=== PATIENT | female | born 1945 | race Caucasian/White ===

== ENCOUNTER 2017-12-24 15:08 | Emergency (ER) | payer MEDICARE, OTHER, SELFPAY ==
[2017-12-24 15:13] VITALS: BP 114/69; PULSE 65; RESP 20; TEMP 36.2; O2SAT 99; BMI 22.6
[2017-12-24 16:46] VITALS: BP 150/71; PULSE 65; RESP 14; O2SAT 100
[2017-12-24] MEDS: LIDOCAINE 1% W/EPI INJ 4 ML INJ (17:23)
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
[2017-12-24] MEDS: TET,DIPH,PERTUSS(ACELL),VAC/PF 0.5 ML SYRINGE IM (18:55)
[2017-12-24 18:58] VITALS: BP 153/82; PULSE 67; RESP 14; O2SAT 100
[2017-12-24 19:41] VITALS: BP 116/74; PULSE 67; RESP 16; O2SAT 100
== END 2017-12-24 19:42 | disposition home or self-care (01) ==
PROVIDERS: Emergency Provider Emergency Medicine
DX: S81.019A Laceration without foreign body, unspecified knee, initial encounter (principal); V18.0XXA Pedal cycle driver injured in noncollision transport accident in nontraffic accident, initial encounter
CPT/HCPCS: 12002; 90471; 93005; 99283; 90715

== ENCOUNTER → 2018-07-04 12:22 | Outpatient (CLI) | payer MEDICARE, OTHER, SELFPAY ==
--- NOTE | 2018-07-04 | DI.MG.S_ITS ---
BILATERAL DIGITAL SCREENING MAMMOGRAM 3D/2D WITH CAD: 07/04/2018 CLINICAL: Routine screening. Family history of breast cancer. Comparison is made to exams dated: 07/25/2016 mammogram, 07/22/2015 mammogram, and 07/04/2014 mammogram - [facility]. The tissue of both breasts is heterogeneously dense. This may lower the sensitivity of mammography. Current study was also evaluated with a Computer Aided Detection (CAD) system. There are benign vascular calcifications in both breasts. No significant masses, calcifications, or other findings are seen in either breast. There has been no significant interval change. IMPRESSION: There is no mammographic evidence of malignancy. A 1 year screening mammogram is recommended. NOTE: For mammograms, a report in lay terms will be sent to the patient. Approximately 15% of breast malignancies will not be visualized mammographically. In the management of a palpable breast mass, a negative mammogram must not discourage biopsy of a clinically suspicious lesion. Electronically Signed By: Xiomy mak/camila:07/04/2018 15:09:54 letter sent: Normal Exam ACR BI-RADS Category 2: Benign Finding(s) 3342F
== END ==
PROVIDERS: Visit Provider Student in an Organized Health Care Education/Training Program
DX: Z12.31 Encounter for screening mammogram for malignant neoplasm of breast (principal); Z80.3 Family history of malignant neoplasm of breast; M81.0 Age-related osteoporosis without current pathological fracture; Z78.0 Asymptomatic menopausal state; Z87.891 Personal history of nicotine dependence
CPT/HCPCS: 77063; 77067; 77080; 77081

== ENCOUNTER → 2020-05-11 14:53 | Outpatient (CLI) | payer MEDICARE, OTHER, SELFPAY ==
--- NOTE | 2020-05-11 14:56 | DI.MG.S_ITS ---
BILATERAL DIGITAL SCREENING MAMMOGRAM 3D/2D WITH CAD: 05/11/2020 CLINICAL: Routine screening. Family history of breast cancer. Comparison is made to exams dated: 07/04/2018 mammogram, 07/25/2016 mammogram, and 07/22/2015 mammogram - [facility]. The tissue of both breasts is heterogeneously dense. This may lower the sensitivity of mammography. Current study was also evaluated with a Computer Aided Detection (CAD) system. There are benign vascular calcifications in both breasts. No significant masses, calcifications, or other findings are seen in either breast. There has been no significant interval change. IMPRESSION: BENIGN There is no mammographic evidence of malignancy. A 1 year screening mammogram is recommended. This exam was interpreted at Station ID: [id number]. NOTE: For mammograms, a report in lay terms will be sent to the patient. Approximately 15% of breast malignancies will not be visualized mammographically. In the management of a palpable breast mass, a negative mammogram must not discourage biopsy of a clinically suspicious lesion. Electronically Signed By: Allen salazar/camila:05/11/2020 19:19:08 letter sent: Normal Exam ACR BI-RADS Category 2: Benign Finding(s) 3342F
== END ==
PROVIDERS: PCP Nurse Practitioner; Referring Provider Nurse Practitioner; Visit Provider Nurse Practitioner
DX: Z12.31 Encounter for screening mammogram for malignant neoplasm of breast (principal); Z80.3 Family history of malignant neoplasm of breast; M81.0 Age-related osteoporosis without current pathological fracture; Z78.0 Asymptomatic menopausal state; Z87.891 Personal history of nicotine dependence
CPT/HCPCS: 77063; 77067; 77080; 77081

== ENCOUNTER → 2020-05-27 07:20 | Outpatient (CLI) | payer MEDICARE, OTHER, SELFPAY ==
[2020-05-27 09:24] LABS: Alanine Aminotransferase 24 IU/L (<35); Albumin Globulin Ratio 1.5 (1.0-2.8); Alkaline Phosphatase 70 U/L (38-126); Aspartate Aminotransferase 31 IU/L (14-36); Bilirubin Total 0.5 mg/dL (0.2-1.3); Blood Urea Nitrogen 20 mg/dL (7-17); Calcium 9.6 mg/dL (8.4-10.2); Carbon Dioxide 31 mmol/L (22-32); Chloride 103 mmol/L (98-107); Estimated Glomerular Filt Rate > 60.0 mL/min (>60); Globulin 2.6 g/dL (1.7-4.1); Glucose 85 mg/dL (80-110); HEMOLYSIS < 15 (0-50); Sodium 139 mmol/L (137-145); Total Protein 6.6 g/dL (6.3-8.2)
[2020-05-27 09:26] LABS: Potassium 4.4 mmol/L (3.4-5.1)
[2020-05-27 09:37] LABS: Free T3, Triiodothyronine Free 3.39 pg/mL (2.77-5.27); Free T4, Direct Thyroxine 1.12 ng/dL (0.78-2.19)
[2020-05-27 09:51] LABS: Thyroid Stimulating Hormone 2.34 uIU/mL (0.47-4.68)
[2020-05-27 11:40] LABS: Creatinine Urine Random 121.9 mg/dL
[2020-05-27 11:50] LABS: Microalbumin Urine Random 1.1 mg/dL (0-1.6)
== END ==
PROVIDERS: PCP Nurse Practitioner; Referring Provider Nurse Practitioner; Visit Provider Nurse Practitioner
DX: I10 Essential (primary) hypertension (principal)
CPT/HCPCS: 36415; 80053; 82043; 82570; 84439; 84443; 84481

== ENCOUNTER → 2020-06-03 09:47 | Outpatient (CLI) | payer MEDICARE, OTHER, SELFPAY | PROVIDERS: PCP Nurse Practitioner; Referring Provider Nurse Practitioner; Visit Provider Nurse Practitioner | DX: I10 Essential (primary) hypertension (principal) | CPT/HCPCS: 93005 ==

== ENCOUNTER → 2020-06-10 08:02 | Outpatient (CLI) | payer MEDICARE, OTHER, SELFPAY ==
--- NOTE | 2020-06-10 08:03 | DI.ECHO.S_ITS ---
[facility] +---------+ : : [address] [place] [address] : : : : [id number] : : : : Phone: [phone]+ Echocardiogram Report + + :Name: MARLO RIVERA Study Date: 06/10/2020 Height: 63 in : :[facility] Weight: 135 lb : : Gender: Female BSA: 1.6 m2 : :: 1945 Age: 75 yrs BP: 149/84 mmHg: :Reason For Study: HYPERTENSION : :Ordering Physician: FREDDY, : :HEIDE Performed By: Pamela Vasques : :Referring: HEIDE HAYES : + + Interpretation Summary The left ventricle is normal in size and wall thickness. The ejection fraction is estimated to be 60-65%. The right ventricle is normal in size and function. No significant valvular pathology seen. Procedure: A two-dimensional transthoracic echocardiogram with color flow and Doppler was performed. The study quality was technically adequate. There is no prior echocardiogram noted for this patient. The heart rate ranged between 60-76 bpm during the study. The patient had occasional PACs during the exam. The patient was in normal sinus rhythm during the exam. The patient had a bundle branch block rhythm during the exam. Left Ventricle: The left ventricle is normal in size and wall thickness. There is no thrombus. The ejection fraction is estimated to be 60-65%. There are no focal wall motion abnormalities. MV E/A: 1.2 Med Peak E' Paulie: 9.0 cm/sec E/E' med: 12.0. Right Ventricle: The right ventricle is normal in size and function. Atria: Both atria are normal in size. There is no Doppler evidence for an interatrial shunt. The thickening of interatrial septum suggests lipomatous hypertrophy. Mitral Valve: The mitral valve leaflets are slightly calcified. There is mild mitral regurgitation. Aortic Valve: The aortic valve is trileaflet. The aortic valve opens well. The aortic valve is mildly calcified. There is discrete nodular thickening of the non- coronary and left coronary cusp. There is no aortic valve stenosis. No aortic regurgitation is present. Tricuspid Valve: The tricuspid valve is normal. Pulmonary artery pressures cannot be estimated because of the lack of a measurable TR jet velocity but the IVC suggests a CVP of around 3 mmHg. There is trace tricuspid regurgitation. Pulmonic Valve: The pulmonic valve leaflets are thin and pliable; valve motion is normal. There is trace pulmonic regurgitation. Great Vessels: The aortic root is normal size. The dimensions of the ascending aorta are normal. The IVC is of normal diameter and collapses greater than 50% with a sniff. This suggests a low right atrial pressure of 3 mm Hg. Pericardium/ Pleura There is no pericardial effusion. There is no pleural effusion. MMode/2D Measurements & Calculations LVIDd: 4.0 cm LVOT diam: 1.9 cm LVIDs: 2.6 cm Ao root diam: 2.8 cm FS: 33.7 % asc Aorta Diam: 3.0 cm EPSS: 0.42 cm Ao Arch Diam (Prox Trans): 2.3 cm IVSd: 0.75 cm LVPWd: 0.93 cm LV rosales. diameter/BSA (cm/m^2): 2.4 LV sys. diameter/BSA (cm/m^2): 1.6 LA A2 area: 15.4 cm2 RA long axis: 4.7 cm LA A4 area: 15.8 cm2 RA area: 14.8 cm2 LA length (vol): 4.8 cm RA vol: 39.5 ml LA vol: 42.9 ml RA : 24.1 ml/m2 LA vol index: 26.2 ml/m2 IVC diam: 1.3 cm RVD1 (basal): 3.6 cm TAPSE: 2.9 cm Doppler Measurements & Calculations Ao V2 max: 125.6 cm/sec LVOT Max Paulie: 103.8 cm/sec Ao V2 mean: 80.6 cm/sec LV V1 max P.3 mmHg Ao max P.3 mmHg LV V1 VTI: 23.3 cm Ao mean P.1 mmHg LORENA(I,D): 2.6 cm2 Ao V2 VTI: 25.5 cm LORENA(V,D): 2.4 cm2 sev ratio: 0.91 LORENA indexed to BSA (cm^2/m^2): 1.6 MV E max paulie: 107.2 cm/sec PA V2 max: 68.6 cm/sec MV A max paulie: 88.9 cm/sec PA V2 mean: 41.9 cm/sec MV E/A: 1.2 PA mean P.86 mmHg Med Peak E' Paulie: 9.0 cm/sec PA pr(Accel): 22.5 mmHg E/E' med: 12.0 Lat Peak E' Paulie: 9.9 cm/sec E/E' lat: 10.8 E/e' average: 11.4 MV dec time: 0.14 sec SV(LVOT): 67.3 ml Reading Physician:05:35 PM
== END ==
PROVIDERS: PCP Nurse Practitioner; Referring Provider Nurse Practitioner; Visit Provider Nurse Practitioner
DX: I34.0 Nonrheumatic mitral (valve) insufficiency (principal); I10 Essential (primary) hypertension
CPT/HCPCS: 93306

== ENCOUNTER 2021-04-14 09:07 | Outpatient (RCR) | payer MEDICARE, OTHER, SELFPAY ==
--- NOTE | 2021-04-14 15:02 | PT.OIE ---
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) Hypertension Lumbar spine pain (~2007) Mitral valve prolapse (~2001) Osteoarthritis (~2005) Osteoporosis (~2018) Ovarian cyst (~1972) Shoulder pain (~2009) Skin cancer (~2004) Vocal cord paralysis (~2017) White coat syndrome with diagnosis of hypertension [place] teeth removed (~1956) Past Surgical History (Last Reviewed 04/09/21 @ 08:52 by EMMANUEL Delgado) Anesthesia History of left hip replacement (~07/2012) Ovarian fibroma (~1972) [place] teeth removed (~1956) Visit Care Team Role Provider Type EMMANUEL Delgado Attending Provider Advanced Water/Wastewater Project Engineer Family Provider Primary Care Provider Referring Provider Specialty: [facility] Address: [address] [place] [address], [facility] Email: [email or web address] Physical Therapy Initial Evaluation PT-OP-A Visit Information Start: 04/14/21 14:46 Freq: Status: Active Protocol: Document 04/14/21 09:45 DCW (Rec: 04/14/21 14:56 [facility] [id number]) Out-Patient Physical Therapy Visit Information Visit Information Visit Type Initial Evaluation Visit Start Time 09:45 Visit Stop Time 10:30 Total Visit Minutes 45 Visit Number 1 Number of STEEL GRINDER Visits 0 Evaluation Information Evaluation Date 04/14/21 PT-OP-B Current Condition Start: 04/14/21 14:46 Freq: Status: Active Protocol: Document 04/14/21 09:45 DCW (Rec: 04/14/21 14:56 [facility] [id number]) Current Condition History of Current Condition Onset Date Worsening over the last year Current Complaints Weakness, declining balance History of Current Condition Pt is a 76 year old female who is reporting worsening balance and weakness over the last year. Admits she has been pretty sedentary during Covid lock-down. 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 Notes that she may just be in denial of the aging process, but feels irritated that she is just not at her usual physical level. PT-OP-C Subjective Start: 04/14/21 14:46 Freq: Status: Active Protocol: Document 04/14/21 09:45 DCW (Rec: 04/14/21 14:56 DCW [id number]) OP-PT Subjective Patient Comments Patient Comments I'm not even sure if this is the right thing for me. I saw the other people in the waiting room, and I'm not really all that bad, I considered just leaving. OP-PT Pain Assessment Pain Assessment Grid Paper Pain Assessment Grid Completed Yes Location Left Knee Intensity 2 Scale Used Numeric (0 - 10) PT-OP-D Balance Start: 04/14/21 14:46 Freq: Status: Active Protocol: Document 04/14/21 09:45 DCW (Rec: 04/14/21 14:56 DCW [id number]) OP-PT Balance Assessment Sitting Balance Static Sitting Balance Ability Normal Dynamic Sitting Balance Ability Normal Standing Balance Static Standing Balance Ability Normal Dynamic Standing Balance Ability Normal Device Used None Balance Tests mCTSIB mCTSIB Position 1 30+ seconds mCTSIB Position 2 30+ seconds mCTSIB Position 3 30+ seconds mCTSIB Position 4 30+ seconds Single Limb Standing Single Limb- Right 13 seconds Single Limb- Left 4 seconds Tandem Tandem Standing R front: 25 seconds. L front: 30+ seconds [place] Fall Scale Copyright Permission PT-OP-E Functional Tests Start: 04/14/21 14:46 Freq: Status: Active Protocol: Document 04/14/21 09:45 DCW (Rec: 04/14/21 14:56 DCW [id number]) Functional Tests Four Step Square Test Score 25/30 Comments Avg score ages 70-79 = 24.9 PT-OP-M Strength Start: 04/14/21 14:46 Freq: Status: Active Protocol: Document 04/14/21 09:45 DCW (Rec: 04/14/21 14:58 DCW [id number]) Shoulder Strength Shoulder Manual Muscle Testing Bilateral Flexion 4+ Good+ Abduction (C5) 4 Good External Rotation 4 Good Internal Rotation 4+ Good+ Hip Strength Hip Manual Muscle Testing Right Flexion (L2) 4+ Good+ Extension (S1) 5 Normal Abduction 5 Normal Adduction 5 Normal External Rotation 4+ Good+ Internal Rotation 4+ Good+ Left Flexion (L2) 4+ Good+ Extension (S1) 5 Normal Abduction 5 Normal Adduction 5 Normal External Rotation 4+ Good+ Internal Rotation 4+ Good+ Knee Strength Knee Manual Muscle Testing Right Flexion (S2) 4+ Good+ Extension (L3) 4+ Good+ Left Flexion (S2) 4- Good- Extension (L3) 4+ Good+ PT-OP-T Assessment and Plan Start: 04/14/21 14:46 Freq: Status: Active Protocol: Document 04/14/21 09:45 DCW (Rec: 04/14/21 15:02 DCW [id number]) Physical Therapy Assessment Evaluation Complexity Number of Personal Factors/Comorbidities 0 Number of Body Systems Impaired 1-2 Clinical Presentation at Evaluation Stable Assessment Summary Assessment Pt overall doing very well, her main complaint at the moment is a recent tweak of the knee, which limited her left knee flexion MMT and also affected her L SLS, however her overall balance and strength are largely WNL for her age. May expect slightly improved scores due to her history of endurance athletics , however no glaring weaknesses or deficiencies. Following assessment, patient and therapist discussed her goals, and in the end, she felt what she really needed was less skilled therapy and more of a personal lines insurance advisor, to help plan and implement an exercise routine and motivate her to follow-through. Therapist is in agreement with this plan. Will discharge following today's evaluation. Physical Therapy Plan Frequency and Duration Frequency of Treatment Eval only Duration of Treatment One day Plan of Care Start Date 04/14/21 Plan of Care End Date 04/15/21 Discharge Physical Therapy Discharge Comments Eval only Next Visit Focus/Plan Next Note Type Discharge Summary
--- NOTE | 2021-04-14 15:03 | PT.OPPOC ---
Physical, Occupational & Speech Therapy At [facility] Current Diagnoses Muscle weakness (generalized) (04/14/21) Visit Care Team Role Provider Type EMMANUEL Delgado Attending Provider Advanced Ski Patrol Officer Family Provider Primary Care Provider Referring Provider Specialty: Family Practice Address: [address] [place] [address], [id number] Email: [email or web address] Plan Of Care PT-OP-T Assessment and Plan Start: 04/14/21 14:46 Freq: Status: Active Protocol: Document 04/14/21 09:45 DCW (Rec: 04/14/21 15:02 DCW [id number]) Physical Therapy Assessment Evaluation Complexity Number of Personal Factors/Comorbidities 0 Number of Body Systems Impaired 1-2 Clinical Presentation at Evaluation Stable Assessment Summary Assessment Pt overall doing very well, her main complaint at the moment is a recent tweak of the knee, which limited her left knee flexion MMT and also affected her L SLS, however her overall balance and strength are largely WNL for her age. May expect slightly improved scores due to her history of endurance athletics , however no glaring weaknesses or deficiencies. Following assessment, patient and therapist discussed her goals, and in the end, she felt what she really needed was less skilled therapy and more of a personal carer, to help plan and implement an exercise routine and motivate her to follow-through. Therapist is in agreement with this plan. Will discharge following today's evaluation. Physical Therapy Plan Frequency and Duration Frequency of Treatment Eval only Duration of Treatment One day Plan of Care Start Date 04/14/21 Plan of Care End Date 04/15/21 Discharge Physical Therapy Discharge Comments Eval only Next Visit Focus/Plan Next Note Type Discharge Summary Plan of Care Dates Plan of Care Start Date 04/14/21 Plan of Care End Date 04/15/21 Electronically Signed by: Fernando Maldonado, PT 04/14/21 [id number] Please Sign and Return: I have reviewed this Plan of Care and certify that the skilled therapy services above are required to meet the patient?s needs. Physician Signature Date Printed Name and Credentials Clinical Instructor Signature Printed Name and Credentials
== END 2021-04-14 15:24 | disposition home or self-care (01) ==
LOC: PHYS 09:07
PROVIDERS: Family Provider Nurse Practitioner; PCP Nurse Practitioner; Referring Provider Nurse Practitioner; Visit Provider Nurse Practitioner
DX: M62.81 Muscle weakness (generalized) (principal)
CPT/HCPCS: 97161

== ENCOUNTER → 2021-04-15 12:51 | Outpatient (CLI) | payer MEDICARE, OTHER, SELFPAY ==
--- NOTE | 2021-04-15 12:54 | DI.RAD.S_ITS ---
PROCEDURE: FL BARIUM SWALLOW W AIR COMPARISON: None. INDICATIONS: Difficulty initiating swallow of own secretions intermittent Technique: Double-contrast esophagram was performed. FINDINGS: No esophageal stricture identified. No definite esophageal mucosal abnormality. There is esophageal dysmotility. There is suggestion of intermittent cricopharyngeal bar however not confirmed on all images. This could be better assessed with dedicated modified swallow examination. IMPRESSION: Esophageal dysmotility. A possible cricopharyngeal bar however not definitely confirmed on all images. Consider further evaluation with modified barium swallow. Dictated by: Chito Castillo M.D. on 04/15/2021 at 16:53 Approved by: Chito Castillo M.D. on 04/15/2021 at 16:56
== END ==
PROVIDERS: Family Provider Nurse Practitioner; PCP Nurse Practitioner; Referring Provider Nurse Practitioner; Visit Provider Nurse Practitioner
DX: R13.10 Dysphagia, unspecified (principal); J38.00 Paralysis of vocal cords and larynx, unspecified; K22.4 Dyskinesia of esophagus
CPT/HCPCS: 74221

== ENCOUNTER → 2021-05-18 09:24 | Outpatient (CLI) | payer MEDICARE, OTHER, SELFPAY ==
--- NOTE | 2021-05-18 09:25 | DI.RAD.S_ITS ---
PROCEDURE: FL BARIUM SWALLOW W SPEECH INDICATIONS: difficulty swallowing COMPARISON: None. TECHNIQUE: Examination was conducted in conjunction with speech pathology per standard protocol. In the lateral projection, filming was performed of the patient swallowing. AP projection filming may also be performed with patient swallowing. COMPARISON: FINDINGS: Function: The oral preparatory phase appears normal, with proper containment. The subsequent oral propulsive phase, pharyngeal phase, and esophageal phase of swallowing also appear normal with all proffered substances. No laryngotracheal penetration or aspiration. There is pooling and the left vallecula and left piriform sinus which is cleared with repeat swallows. Anterior endplate osteophytes at the level of the C4-C5, C5-C6 and C6-C7 discs causes mild contouring of the upper cervical esophagus. 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 No cervical esophageal webs. No Zenker's diverticulum. No strictures. IMPRESSION: 1. Small cricopharyngeal bar. 2. Left vallecula and left piriform sinus pooling. 3. No laryngotracheal penetration or aspiration. Dictated by: Nakia Perkins MD, PhD on 05/18/2021 at 12:05 Approved by: Nakia Perkins MD, PhD on 05/19/2021 at 10:08
--- NOTE | 2021-05-18 17:16 | ST.SWALLOW ---
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 Megan Alexander Reason for Referral Dysphagia; Dysphonia Setting Setting Outpatient Care Patient Information Identification Type Name,ID Card Patient History The pt is a 76-yr-old female with c/o sticking sensation at base of throat and effort frequently required when swallowing solids. 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 MBSS was recommended for further evaluation. The pt reported swallow difficulties coincided with changes in voicing that began ~2017. The pt experienced complete aphonia for 3 days after an evening of singing Karaoke. Since then, her voice has returned but not to PLOF. She underwent laryngoscopy with Dr. Thomason with no findings of abnormality, per pt report. The pt also reported occasional difficulty coordinating breathing, with difficulty inhaling after the exhale, which interferes with her ability to participate in sports such as cycling. She also sometimes awakens at night with the sensation that she cannot breathe, though with increased consciousness she is able to breathe. She has benefited from Wim Hof breathing method. Subjective Observations The pt arrived on time and provided case history supplemental to medical records. Patient Positioning Position View Lat-A/P Imaging Lateral View Textures Administered Trials Presented Thin Liquid via Spoon,Thin Liquid via Cup,[place] Liquid via Cup,Honey Liquid via Spoon ,Dysphagia Blenderized Textures,Regular Textures Oral Phase Source: MBSIMP (TM) (C) Bolus Specific Scoring Grid Lip Closure No Impairment (WNL) Oral Residue Mild Impairment Residue Clearing WFL Nasal Regurgitation No Additional Oral Phase Observations Oral Peripheral Exam: Symmetrical features WNL of strength, coordination and ROM . Pt has natural dentition in good condition. Soft palate elevated upon phonation. Reduced back of tongue strength during bolus prep phase allowed for escape of bolus head to vallecula prior to swallow onset. Mild oral residue escaped to vallecula post-swallow, requiring additional swallow to completely clear from oral cavity and from vallecula. Dry swallow was successful in clearing reside. Pharyngeal Phase Source: MBSIMP (TM) (C) Bolus Specific Scoring Grid Delayed Initiation of Pharyngeal Swallow Yes Soft Palate Elevation No Impairment (WNL) Tongue Base Strength/Range of Motion Mild Impairment Residue Along the Tongue Base Yes Clearance of Residue Along Tongue Base WFL Laryngeal Elevation No Impairment (WNL) Anterior Hyoid Movement No Impairment (WNL) Epiglottic Range of Motion Minimal Impairment Vallecular Residue Yes: Left side Clearance of Vallecular Residue WFL Laryngeal Vestibular Closure No Impairment (WNL) Pharyngeal Stripping Wave Moderate Impairment Posterior Pharyngeal Wall Residue No Upper Esophageal Sphincter Opening Mild Impairment Residue in the Pyriform Sinuses Yes: Left side Pharyngoesophageal Backflow Observed No Additional Pharyngeal Phase Observations No penetration or aspiration was observed with all trials. Epiglottic inversion was mildly diminished. This, in addition to mild-moderate reduction of strength at base of tongue and pharyngeal constrictors, resulted in mild -moderate residue at vallecula , predominantly on left side. Prominent osteophytes were visible at C3-C4, C4-C5, and C6-C7, which impeded bolus flow and contributed to residue at pyrform sinuses ( again predominantly on left side) and below UES at C4-C5 level. 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 All oral and pharyngeal residue cleared well with subsequent swallows. Pharyngeal residue increased with bolus bulk and dry, sticking consistency sometimes requiring 2 dry swallows to clear. A/P View Textures Administered Trials Presented Thin Liquid via Cup,Barium Tablet A/P View Observations Pharyngeal Contraction No Impairment (WNL) Additional Observations Osteophytes at C4-C5, C5-C6, and C6-C7 cause mild contouring of the upper cervical esophagus. A 13mm barium tablet and thin liquid passed to stomach without delay. Clinical Impressions Dysphagia Type Mild Oropharyngeal Dysphagia Findings The pt presents with mild oropharyngeal dysphagia. Oral dysphagia is secondary to mildly reduce back of tongue strength that allows for early escape of bolus to the pharynx prior to swallow trigger. Mild oral residue was also observed to flow from oral cavity to vallecula post- swallow. Pharyngeal dysphagia is secondary to reduced strength at base of tongue and pharyngeal constrictors and by incomplete epiglottic inversion. Additionally, there appears to be left sided weakness allowing for collection of residue at the left vallecula and left pyriform sinus. Pharyngeal swallow phase is further complicated by osteophytes at C4-C5, C5-C6, and C6-C7 and a small cricopharyngeal bar which present mild-moderate impediment of bolus flow and trap residue at the cervical esophagus post-swallow. All residue clears well with subsequent swallows but likely accounts for the pt's sticking sensations. While the pt exhibited complete closure of the laryngeal vestibule during swallow with no penetration or aspiration observed, the presence of pharyngeal residue does increase the pt's risk of aspiration and contributes to sticking sensations. Rehabilitation Potential Good Patient Appropriate for Therapy Yes: Results may be limited by presence of physical structures Recommendations Diet Liquids Order Thin Diet Order Regular Medication Recommendation As Tolerated Aspiration Precautions Recommended Precautions Upright at 90 Degrees, Effortful Swallow,Double Swallow Additional Precautions Pt may benefit from left head turn Treatment Plan Therapy Recommendations Outpatient Speech Therapy Compensatory Strategies Recommendations Sitting Upright (90 deg), Double Swallow Short Term Goals 1. The pt will complete exercises independently to increase efficiency of swallow to reduce posterior oral escape and pharyngeal residue. 2. The pt will use compensatory swallow strategies independently as needed to improve bolus clearance and comfort with oral intake. Diversional Therapist Goals 1. The pt will tolerate regular textures and thin liquids without overt s/sx of aspiration and with minimal to no sticking sensation, as measured by clinical observations, pt report, and follow-up MBSS as appropriate.
== END ==
PROVIDERS: PCP Nurse Practitioner; Referring Provider Nurse Practitioner; Visit Provider Nurse Practitioner
DX: R13.10 Dysphagia, unspecified (principal); R49.9 Unspecified voice and resonance disorder
CPT/HCPCS: 74230; 92611

== ENCOUNTER → 2021-05-28 15:14 | Outpatient (CLI) | payer MEDICARE, OTHER, SELFPAY ==
--- NOTE | 2021-05-28 | DI.MG.S_ITS ---
BILATERAL DIGITAL SCREENING MAMMOGRAM 3D/2D WITH CAD: 05/28/2021 CLINICAL: Routine screening. Family history of breast cancer. Comparison is made to exams dated: 05/11/2020 mammogram, 07/04/2018 mammogram, and 07/25/2016 mammogram - [facility]. The tissue of both breasts is heterogeneously dense. This may lower the sensitivity of mammography. Current study was also evaluated with a Computer Aided Detection (CAD) system. There are benign vascular calcifications in both breasts. No significant masses, calcifications, or other findings are seen in either breast. There has been no significant interval change. IMPRESSION: BENIGN There is no mammographic evidence of malignancy. A 1 year screening mammogram is recommended. This exam was interpreted at Station ID: [id number]. NOTE: For mammograms, a report in lay terms will be sent to the patient. Approximately 15% of breast malignancies will not be visualized mammographically. In the management of a palpable breast mass, a negative mammogram must not discourage biopsy of a clinically suspicious lesion. Electronically Signed By: Tc lozano/camila:05/28/2021 16:19:19 letter sent: Normal Exam ACR BI-RADS Category 2: Benign Finding(s) 3342F
== END ==
PROVIDERS: PCP Nurse Practitioner; Referring Provider Nurse Practitioner; Visit Provider Nurse Practitioner
DX: Z12.31 Encounter for screening mammogram for malignant neoplasm of breast (principal); Z80.3 Family history of malignant neoplasm of breast
CPT/HCPCS: 77063; 77067

== ENCOUNTER → 2022-05-13 09:54 | Outpatient (CLI) | payer MEDICARE, OTHER, SELFPAY | PROVIDERS: PCP Nurse Practitioner; Referring Provider Nurse Practitioner; Visit Provider Nurse Practitioner | DX: Z13.820 Encounter for screening for osteoporosis (principal); Z78.0 Asymptomatic menopausal state | CPT/HCPCS: 77080 ==

== ENCOUNTER → 2022-05-26 08:11 | Outpatient (CLI) | payer MEDICARE, OTHER, SELFPAY ==
[2022-05-26 09:33] LABS: Add Manual Diff / Slide Review NO; Alanine Aminotransferase 19 IU/L (<35); Albumin 4.1 g/dL (3.5-5.0); Albumin Globulin Ratio 1.4 (1.0-2.8); Alkaline Phosphatase 69 U/L (38-126); Aspartate Aminotransferase 30 IU/L (14-36); BUN Creatinine Ratio 29.1 (6-22); Basophils Absolute Auto 100 /uL (0-100); Bilirubin Total 0.7 mg/dL (0.2-1.3); Blood Urea Nitrogen 25 mg/dL (7-17); Calcium 9.1 mg/dL (8.4-10.2); Carbon Dioxide 26 mmol/L (22-32); Chloride 104 mmol/L (98-107); Cholesterol 192 mg/dL (140-199); Eosinophils Absolute Auto 0 /uL (0-450); Eosinophils Percent Auto 1.4 % (2-4); Estimated Glomerular Filt Rate > 60 mL/min (>60); Globulin 2.9 g/dL (1.7-4.1); Glucose 94 mg/dL (80-110); HDL Cholesterol 62 mg/dL (40-60); Hematocrit 38.9 % (36-46); Hemoglobin 13.1 g/dL (12.0-16.0); Lymphocytes Absolute Auto 1200 /uL (1100-4500); Lymphocytes Percent Auto 33.5 % (25-40); Mean Corpuscular HGB Conc 33.5 % (30-36); Mean Corpuscular Volume 86.6 fL (80-100); Monocytes Absolute Auto 300 /uL (0-900); Monocytes Percent Auto 8.5 % (3-14); Neutrophils Absolute Auto 2000 /uL (1500-7000); Neutrophils Percent Auto 54.6 % (50-75); Platelet Count 220 X10^3/uL (150-400); Potassium 4.1 mmol/L (3.4-5.1); Red Cell Distribution Width 13.8 % (11.6-14.8); Sodium 140 mmol/L (137-145); Triglycerides 80 mg/dL (35-150); White Blood Cell Count 3.6 X10^3/uL (4.5-11.0)
[2022-05-26 09:34] LABS: HEMOLYSIS < 15 (0-50); LDL Cholesterol Calculated 114 mg/dL (<100)
[2022-05-26 10:03] LABS: Free T3, Triiodothyronine Free 4.26 pg/mL (2.77-5.27); Free T4, Direct Thyroxine 1.25 ng/dL (0.78-2.19)
[2022-05-26 10:16] LABS: Thyroid Stimulating Hormone 1.39 uIU/mL (0.47-4.68)
[2022-05-26 10:23] LABS: Vitamin B12 584 pg/mL (239-931)
[2022-05-26 16:39] LABS: HIV 1 & 2 Ab/Ag 4th Gen Combo NEGATIVE (NEGATIVE)
[2022-05-27 07:18] LABS: RPR Screen Non Reactive (Non Reactive)
== END ==
PROVIDERS: PCP Nurse Practitioner; Referring Provider Nurse Practitioner; Visit Provider Nurse Practitioner
DX: R41.3 Other amnesia (principal); Z13.6 Encounter for screening for cardiovascular disorders
CPT/HCPCS: 36415; 80053; 80061; 82607; 84439; 84443; 84481; 85025; 86592; 87389

== ENCOUNTER → 2022-05-30 09:49 | Outpatient (CLI) | payer MEDICARE, OTHER, SELFPAY ==
--- NOTE | 2022-05-30 09:51 | DI.MG.S_ITS ---
BILATERAL DIGITAL SCREENING MAMMOGRAM 3D/2D WITH CAD: 05/30/2022 CLINICAL: Routine screening. Family history of breast cancer. Comparison is made to exams dated: 05/11/2020 mammogram, 05/28/2021 mammogram, and 07/04/2018 mammogram - [facility]. Both breasts are heterogeneously dense, which may obscure small masses (category c / 51-75% glandular tissue). Current study was also evaluated with a Computer Aided Detection (CAD) system. There are benign vascular calcifications in both breasts. No significant masses, calcifications, or other findings are seen in either breast. There has been no significant interval change. IMPRESSION: BENIGN There is no mammographic evidence of malignancy. A 1 year screening mammogram is recommended. Based on the Tyrer Cuzick model (a risk assessment model) the patient's lifetime risk is 10.6% and her 10 year risk is 0.0%. According to the ACR, ACS, and NCCN guidelines, an annual breast MRI exam along with mammogram is recommended if the patient's lifetime risk is 20% or greater. This exam was interpreted at Station ID: [id number]. NOTE: For mammograms, a report in lay terms will be sent to the patient. Approximately 15% of breast malignancies will not be visualized mammographically. In the management of a palpable breast mass, a negative mammogram must not discourage biopsy of a clinically suspicious lesion. Electronically Signed By: Smitha villa/camila:05/30/2022 12:24:11 letter sent: Normal Exam ACR BI-RADS Category 2: Benign Finding(s) 3342F
== END ==
PROVIDERS: PCP Nurse Practitioner; Referring Provider Nurse Practitioner; Visit Provider Nurse Practitioner
DX: Z12.31 Encounter for screening mammogram for malignant neoplasm of breast (principal); Z80.3 Family history of malignant neoplasm of breast
CPT/HCPCS: 77063; 77067

== ENCOUNTER → 2023-05-29 10:10 | Outpatient (CLI) | payer MEDICARE, OTHER, SELFPAY ==
[2023-05-29 11:34] LABS: Alanine Aminotransferase 24 IU/L (<35); Albumin 3.9 g/dL (3.5-5.0); Albumin Globulin Ratio 1.6 (1.0-2.8); Alkaline Phosphatase 65 U/L (38-126); Aspartate Aminotransferase 31 IU/L (14-36); BUN Creatinine Ratio 19.5 (6-22); Bilirubin Total 0.6 mg/dL (0.2-1.3); Blood Urea Nitrogen 16 mg/dL (7-17); Calcium 9.8 mg/dL (8.4-10.2); Carbon Dioxide 27 mmol/L (22-32); Chloride 104 mmol/L (98-107); Cholesterol 206 mg/dL (140-199); Estimated Glomerular Filt Rate > 60 mL/min (>60); Globulin 2.5 g/dL (1.7-4.1); Glucose 106 mg/dL (80-110); HDL Cholesterol 82 mg/dL (40-60); HEMOLYSIS < 15 (0-50); LDL Cholesterol Calculated 98 mg/dL (<100); Potassium 4.1 mmol/L (3.4-5.1); Sodium 139 mmol/L (137-145); Total Protein 6.4 g/dL (6.3-8.2); Triglycerides 130 mg/dL (35-150)
[2023-05-29 11:47] LABS: Free T3, Triiodothyronine Free 3.55 pg/mL (2.77-5.27); Free T4, Direct Thyroxine 1.02 ng/dL (0.78-2.19)
[2023-05-29 12:01] LABS: Thyroid Stimulating Hormone 1.56 uIU/mL (0.47-4.68)
== END ==
PROVIDERS: PCP Nurse Practitioner; Referring Provider Nurse Practitioner; Visit Provider Nurse Practitioner
DX: I10 Essential (primary) hypertension (principal); E78.00 Pure hypercholesterolemia, unspecified; R41.3 Other amnesia
CPT/HCPCS: 36415; 80053; 80061; 84439; 84443; 84481

== ENCOUNTER → 2023-06-08 09:15 | Outpatient (CLI) | payer MEDICARE, OTHER, SELFPAY ==
--- NOTE | 2023-06-08 | DI.MRI.S_ITS ---
PROCEDURE: MR HEAD/BRAIN WO CON INDICATIONS: COGNITIVE CHANGE/DEMENTIA TECHNIQUE: Non-contrast axial T1 spin echo, axial T2 fast spin echo, sagittal and axial FLAIR, coronal T2 fast spin echo, axial gradient echo, axial diffusion and ADC through the brain. COMPARISON: None. FINDINGS: Image quality: Excellent. CSF spaces: Ventricles appear symmetric in size and shape. Basal cisterns are patent. No extra-axial fluid collections. Brain: No intracranial bleeds or mass effects. There is cerebral volume loss for age. There are periventricular and mild deep white matter chronic small vessel ischemic changes. Brainstem appears normal. Diffusion-weighted images show no acute ischemic insults. No chronic ischemic insults. Normal intravascular flow voids are present. Skull and face: Calvarial bone marrow is normal in signal. Orbits are normal. Note is made of bilateral lens replacements. Sinuses: The there is a mucous retention cyst along the medial aspect of the right maxillary sinus. Sinuses and mastoids are otherwise relatively clear. IMPRESSION: Brain MRI within normal limits for age, with brain parenchymal volume loss and chronic small vessel ischemic change. No findings of acute or subacute infarction can be seen. Dictated by: Vidal Ho M.D. on 06/08/2023 at 9:42 Approved by: Vidal Ho M.D. on 06/08/2023 at 9:44
== END ==
PROVIDERS: PCP Nurse Practitioner; Referring Provider Internal Medicine; Visit Provider Internal Medicine
DX: R41.89 Other symptoms and signs involving cognitive functions and awareness (principal); F03.90 Unspecified dementia, unspecified severity, without behavioral disturbance, psychotic disturbance, mood disturbance, and anxiety
CPT/HCPCS: 70551

== ENCOUNTER → 2025-03-11 14:02 | Outpatient (CLI) | payer MEDICARE, OTHER, SELFPAY ==
--- NOTE | 2025-03-11 14:05 | DI.US.S_ITS ---
PROCEDURE: US PERIPH VENOUS LOW EXTREM LT INDICATIONS: left leg swelling TECHNIQUE: Real-time imaging, as well as color and pulse Doppler interrogation, were performed of the lower extremity deep veins from the inguinal ligament to the popliteal fossa, with documentation of the visualized calf veins. COMPARISON: None. FINDINGS: The common femoral, femoral, popliteal, and the visualized calf veins are normally compressible, and free of intraluminal thrombus. Color and pulse Doppler demonstrate normal phasic intraluminal flow. There is normal augmentation response to distal compression maneuver. IMPRESSION: No findings of lower extremity deep venous thrombosis. Dictated by: Vidal Ho M.D. on 03/11/2025 at 13:53 Approved by: Vidal Ho M.D. on 03/11/2025 at 13:53
== END ==
PROVIDERS: PCP Family Medicine; Referring Provider Family Medicine; Visit Provider Family Medicine
DX: M79.89 Other specified soft tissue disorders (principal)
CPT/HCPCS: 93971